=== PATIENT | male | born 1945 ===

== ENCOUNTER 2018-01-16 10:48 | Emergency (ER) | payer MEDICARE ==
[2018-01-16] MEDS ORDERED: DiphenhydrAMINE 50 mg/ml Inj ONE (10:59)
[2018-01-16] MEDS ORDERED: DiphenhydrAMINE 50 mg/ml Inj IVP STA (11:00)
[2018-01-16] MEDS ORDERED: Sodium Chloride 0.9% 1,000 ML IV ONE (11:00)
[2018-01-16] MEDS ORDERED: Sodium Chloride 0.9% 1,000 ML ONE (11:08)
[2018-01-16 11:19] LABS: BASO # 0.1 K/uL (0.0-0.2); BASO % 0.8 % (0.0-2.0); EOS # 0.4 K/uL (0.0-0.7); EOS % 6.3 % (0.0-4.0); HEMOGLOBIN 13.8 g/dL (12.0-18.0); LYMPH # 2.1 K/uL (1.0-4.3); MEAN CELL VOLUME 89.1 fL (80.0-94.0); MEAN CORPUSCULAR HEMOGLOBIN 31.2 pg (27.0-31.0); MEAN PLATELET VOLUME 7.9 fL (7.2-11.7); MONO # 0.6 K/uL (0.0-0.8); MONO % 9.4 % (0.0-10.0); NEUT # 3.4 K/uL (1.8-7.0); NEUT % 51.5 % (50.0-75.0); RBC 4.41 Mil/uL (4.40-5.90); RED CELL DISTRIBUTION WIDTH 13.7 % (11.5-14.5); WHITE BLOOD COUNT 6.6 K/uL (4.8-10.8)
[2018-01-16 11:39] LABS: ALB/GLOB RATIO 1.1 (1.0-2.1); ALBUMIN 4.2 g/dL (3.5-5.0); ALT/SGPT 33 U/L (21-72); AST/SGOT 36 U/L (17-59); BLOOD UREA NITROGEN 23 mg/dL (9-20); CALCIUM 9.3 mg/dl (8.6-10.4); GFR AFRICAN-AMERICAN > 60; GFR NON-AFRICAN AMERICAN > 60
[2018-01-16 13:03] VITALS: O2SAT 96
--- NOTE | 2018-01-16 13:47 | C.PDOC ---
History Of Present Illness 72 year old male presents to the emergency department complaining of swelling of his lips that began last night, worsened this morning. Patient reports 1 previous episode of nut allergy. Admits to eating a lot of peanuts yesterday. He denies any SOB, swelling of the tongue, or chest pain. Patient did not take any medications for symptom relief prior to arrival. Time Seen by Provider: 01/16/18 11:00 Chief Complaint (Nursing): Allergic Reaction History Per: Patient History/Exam Limitations: no limitations Onset/Duration Of Symptoms: Days (x2) Current Symptoms Are (Timing): Still Present Possible Cause: Food Past Medical History Reviewed: Historical Data, Nursing Documentation, Vital Signs Vital Signs: Last Vital Signs Temp 97.7 F 01/16/18 11:00 Pulse 50 L 01/16/18 13:02 Resp 14 01/16/18 13:02 BP 156/74 H 01/16/18 13:02 Pulse Ox 96 01/16/18 15:20 - Medical History PMH: Diabetes, HTN Surgical History: Hernia Repair Family History: States: No Known Family Hx - Social History Hx Tobacco Use: No Hx Alcohol Use: No Hx Substance Use: No - Immunization History Hx Tetanus Toxoid Vaccination: No Hx Influenza Vaccination: No Hx Pneumococcal Vaccination: No Review Of Systems Except As Marked, All Systems Reviewed And Found Negative. ENT: Positive for: Other (Lip swelling) Physical Exam - Physical Exam Appears: Well (Appears comfortable, speaking in full sentences), Non-toxic, No Acute Distress Skin: Normal Color, Warm, Dry Head: Atraumatic, Normacephalic Eye(s): bilateral: Normal Inspection, PERRL, EOMI Nose: Normal Oral Mucosa: Moist Tongue: Normal Appearing, No Swelling Lips: Swelling (Moderate swelling of lips) Throat: Normal, No Drooling Neck: Normal ROM, Supple Chest: Symmetrical Cardiovascular: Rhythm Regular, No Murmur Respiratory: Normal Breath Sounds, No Accessory Muscle Use, No Rhonchi, No Stridor, No Wheezing Gastrointestinal/Abdominal: Soft, No Tenderness, No Distention Extremity: Bilateral: Atraumatic, Normal Color And Temperature, Normal ROM Neurological/Psych: Oriented x3, Normal Speech ED Course And Treatment - Laboratory Results Result Diagrams: 01/16/18 11:15 01/16/18 11:15 O2 Sat by Pulse Oximetry: 96 (RA) Pulse Ox Interpretation: Normal Progress Note: Will observe patient on monitor in the ED. Blood work ordered. Administered 50 mg IV Benadryl, 125 mg IV solu-medrol, and normal saline IV fluids. On reevaluation patient reports improvement in symptoms. Patient remains alert, awake, afebrile, with no respiratory distress or intra-oral swelling throughout ED observation. Disposition Counseled Patient/Family Regarding: Studies Performed, Diagnosis, Need For Followup, Rx Given - Disposition Referrals: Erwin Ingram MD [Medical Doctor] - Disposition: HOME/ ROUTINE Disposition Time: 15:15 Condition: STABLE Additional Instructions: FOLLOW UP WITH YOUR DOCTOR IN 1-2 DAYS USE MEDICATIONS DIRECTED RETURN TO EMERGENCY ROOM IF SYMPTOMS WORSEN SEGUIMIENTO CON SPENCE MDICO EN 1-2 BOWMAN USE MEDICAMENTOS SEGN LO INDICADO REGRESE AL VIRY DE EMERGENCIA SI LOS SNTOMAS EMPEORAN Prescriptions: DiphenhydrAMINE [Benadryl] 25 mg PO Q6 PRN #20 cap PRN Reason: Itching / Pruritus Epinephrine HCl [Epipen Auto-Injector] 0.3 mg SC ONCE PRN 1 Days ml PRN Reason: Anaphylaxis predniSONE [predniSONE Tab] 40 mg PO DAILY #8 tab Instructions: Food Allergy Forms: [facility] (Faroese) Print Language: GEORGIAN - POA Present On Arrival: None - Clinical Impression Clinical Impression: Allergic reaction - Scribe Statement The provider has reviewed the documentation as recorded by the Scribe (Sita Ortiz) Provider Attestation: All medical record entries made by the Scribe were at my direction and personally dictated by me. I have reviewed the chart and agree that the record accurately reflects my personal performance of the history, physical exam, medical decision making, and the department course for this patient. I have also personally directed, reviewed, and agree with the discharge instructions and disposition.
[2018-01-16 15:37] VITALS: BP 142/79; PULSE 65; RESP 15; TEMP 98.2
== END 2018-01-16 15:40 | disposition home or self-care (01) ==
LOC: C.ER 10:48
DX: T78.40XA Allergy, unspecified, initial encounter (principal)
CPT/HCPCS: 80053; 85025; 96361; 96374; 96375; 99285; J1200; J2930; J7040